=== PATIENT | female | born 1935 | race Caucasian/White ===

== ENCOUNTER 2018-12-28 16:49 | Emergency (ER) | payer MEDICARE, OTHER ==
--- NOTE | 2018-12-28 17:15 | ED ---
Head Injury - HPI Summary HPI Summary: 83-year-old female presents with head injury today. She states that her walker slipped out from under her and she fell and hit her head. She denies any chest pain or shortness of breath. She states this was a mechanical fall. She denies any hip or lower extremity injury. No bowel pain. She did not pass out. No loss consciousness. She believes she is not on blood thinners. Has an abrasion to her forehead that continues to bleed. Denies any neck pain. No other injury. - History Of Current Complaint Chief Complaint: EDHeadInjury Stated Complaint: HEAD LAC PER EMS Time Seen by Provider: 12/28/18 17:04 Pain Intensity: 0 - Allergies/Home Medications Allergies/Adverse Reactions: Allergies Allergy/AdvReac Type Severity Reaction Status Date / Time MS Acetaminophen Allergy Unknown Unknown Verified 05/11/13 11:41 [From Percocet] Reaction Details MS Oxycodone [From Percocet] Allergy Unknown Unknown Verified 05/11/13 11:41 Reaction Details MS Sulfa Antibiotics Allergy Unknown Unknown Verified 05/11/13 11:41 [Sulfa Antibiotics] Reaction Details Home Medications: Home Medications ALPRAZolam TAB* [Xanax TAB*] 0.25 - 0.5 mg PO BEDTIME PRN MDD 0.5 mg 12/28/18 [ History Confirmed 12/28/18] Allopurinol TAB* [Zyloprim 100 MG TAB*] 100 mg PO DAILY 12/28/18 [History Confirmed 12/28/18] Aspirin EC TAB* [Ecotrin EC Low Dose 81 MG*] 81 mg PO DAILY 12/28/18 [History Confirmed 12/28/18] Famotidine TAB* [Pepcid 20 MG TAB*] 20 mg PO DAILY 12/28/18 [History Confirmed 12/28/18] Hydrochlorothiazide TAB* [Hydrodiuril TAB*] 25 mg PO DAILY 12/28/18 [History Confirmed 12/28/18] Labetalol TAB* [Trandate TAB*] 300 mg PO BID 12/28/18 [History Confirmed ] Levothyroxine TAB* [Synthroid TAB*] 100 mcg PO DAILY 12/28/18 [History Confirmed 12/28/18] Nabumetone TAB* [Relafen TAB*] 500 mg PO BID WITH MEALS PRN 12/28/18 [History Confirmed 12/28/18] PARoxetine HCL TAB* [Paxil TAB*] 30 mg PO DAILY 12/28/18 [History Confirmed 07/13] Quinapril (NF) [Accupril (NF)] 40 mg PO DAILY 12/28/18 [History Confirmed ] Simvastatin TAB(NF) [Zocor(NF)] 20 mg PO BEDTIME 12/28/18 [History Confirmed 07/13] amLODIPine TAB* [Norvasc 5 mg TAB*] 10 mg PO DAILY 12/28/18 [History Confirmed 12/28/18] cloNIDine TAB* [Catapres 0.1 MG TAB*] 0.2 mg PO BID 12/28/18 [History Confirmed 12/28/18] metFORMIN* [Glucophage 500 MG TAB *] 500 mg PO BID WITH MEALS 12/28/18 [History Confirmed 12/28/18] PMH/Surg Hx/FS Hx/Imm Hx Endocrine/Hematology History: Reports: Hx Thyroid Disease Cardiovascular History: Reports: Hx Hypertension Denies: Hx Pacemaker/ICD Sensory History: Denies: Hx Hearing Aid Psychiatric History: Denies: Hx Panic Disorder - Cancer History Hx Chemotherapy: No Hx Radiation Therapy: No - Surgical History Surgery Procedure, Year, and Place: RT KNEE REPLACEMENT. RT FEMUR SURGERY. LT FEMUR SURGERY. LT HIP REPLACEMENT. GALLBLADDER 2012. PARTIAL HYSTERECTOMY. CATARACTS. LT FOOT SURGERY A CHILD Infectious Disease History: No Infectious Disease History: Denies: Traveled Outside the [place] in Last 30 Days - Family History Known Family History: Positive: Non-Contributory - Social History Alcohol Use: None Substance Use Type: Reports: None Hx Tobacco Use: No Smoking Status (MU): Never Smoked Tobacco Review of Systems Negative: Fever Negative: Chest Pain Negative: Shortness Of Breath Positive: Headache All Other Systems Reviewed And Are Negative: Yes Physical Exam Triage Information Reviewed: Yes Vital Signs On Initial Exam: Initial Vitals Temp Pulse Resp BP Pulse Ox 97.6 F 65 18 163/60 97 12/28/18 16:59 12/28/18 16:59 12/28/18 16:59 12/28/18 16:59 12/28/18 16:59 Vital Signs Reviewed: Yes Appearance: Positive: Well-Appearing Skin: Positive: Warm, Dry, Other - contusion with abrasion to right side of head Head/Face: Positive: Normal Head/Face Inspection Eyes: Positive: Normal, EOMI, ANGEL LUIS, Conjunctiva Clear ENT: Positive: Pharynx normal Respiratory/Lung Sounds: Positive: Clear to Auscultation, Breath Sounds Present Cardiovascular: Positive: Normal, RRR Abdomen Description: Positive: Nontender, Soft Bowel Sounds: Positive: Present Musculoskeletal: Positive: Normal Neurological: Positive: Sensory/Motor Intact, CN Intact II-III. Negative: Alert , Oriented to Person Place, Time - not orientated to time Psychiatric: Positive: Normal - [place] Coma Scale Best Eye Response: 4 - Spontaneous Best Motor Response: 6 - Obeys Commands Best Verbal Response: 5 - Oriented Coma Scale Total: 15 Diagnostics - Vital Signs Vital Signs Temp Pulse Resp BP Pulse Ox 12/28/18 16:59 97.6 F 65 18 163/60 97 - Laboratory Lab Statement: Any lab studies that have been ordered have been reviewed, and results considered in the medical decision making process. - CT brain CT Interpretation Completed By: Radiologist Summary of CT Findings: IMPRESSION: No acute intracranial abnormality. Right frontal scalp hematoma. Mild frontal sinus disease unchanged. neck CT Interpretation Completed By: Radiologist Summary of CT Findings: IMPRESSION: No acute C-spine fractures. Moderate degenerative changes. Head Injury Course/Dx Course Of Treatment: 83-year-old female presents with head injury today. She states that her walker slipped out from under her and she fell and hit her head. She denies any chest pain or shortness of breath. She states this was a mechanical fall. She denies any hip or lower extremity injury. No bowel pain. She did not pass out. No loss consciousness. She believes she is not on blood thinners. Has an abrasion to her forehead that continues to bleed. Denies any neck pain. No other injury. On exam has contusion with abrasion noted to the right side of forehead. Has been normal neuro exam but is not oriented to time. CT brain normal. CT neck normal. believes tetanus is up to date. gave head injury precautions. patient understnad and agrees with plan. - Diagnoses Differential Diagnosis/HQI/PQRI: Concussion Without LOC, Contusion, Intracranial Bleed Provider Diagnoses: Head injury, Fall, Traumatic hematoma of head Discharge ED - Sign-Out/Discharge Documenting (check all that apply): Patient Departure Patient Received Moderate/Deep Sedation with Procedure: No - Discharge Plan Condition: Good Disposition: HOME Patient Education Materials: Head Injury (ED) Referrals: Ayla Herbert WEATHER CLERK [Primary Care Provider] - Additional Instructions: Place ice on area as needed keep abrasion clean, wash with soap and water Take Tylenol for headache every 6 hours Modify activities as tolerated Follow up with primary within 5 days Return to ED if develop vomiting, severe headache, change in behavior, or any new or worsening symptoms - Billing Disposition and Condition Condition: GOOD Disposition: Home
[2018-12-28] MEDS ORDERED: Acetaminophen TAB* 325 MG PO ONE (18:25)
[2018-12-28 18:38] VITALS: BP 164/63
== END 2018-12-28 18:37 | disposition home or self-care (01) ==
LOC: ED 16:49
DX: S00.83XA Contusion of other part of head, initial encounter (principal); W18.39XA Other fall on same level, initial encounter; Y92.9 Unspecified place or not applicable; M50.320 Other cervical disc degeneration, mid-cervical region, unspecified level; J32.1 Chronic frontal sinusitis; E07.9 Disorder of thyroid, unspecified; I10 Essential (primary) hypertension; Z79.82 Long term (current) use of aspirin; Z79.899 Other long term (current) drug therapy; Z96.651 Presence of right artificial knee joint; Z96.642 Presence of left artificial hip joint; Z98.1 Arthrodesis status; Z88.6 Allergy status to analgesic agent; Z88.5 Allergy status to narcotic agent; Z88.2 Allergy status to sulfonamides
CPT/HCPCS: 70450; 72125; 99283; A9270-GY

== ENCOUNTER 2019-08-10 08:05 | Inpatient (IN) | payer MEDICARE, OTHER ==
--- OUTSIDE RECORDS SUMMARY | 2019-08-10 08:25 | XMS REPORT | Continuity of Care Document ---
:1935 External Reference #:[id number] Author Name Ayla Herbert, [employer] Address [address] [place] [address] Care Team Providers Name Role Phone Vinicius Foster MD - Rheumatology Care Team Information Color Buffer Bobby Gregory MD - Cardiovascular Care Team Information Color Buffer Disease Ruba Gardiner MD - Surgery Care Team Information Color Buffer Greg Calvillo MD - Orthopaedic Care Team Information Color Buffer Surgery Tad Estrada MD - Care Team Information Color Buffer [phone] Gastroenterology Problems Active Problems Provider Date Type 2 diabetes mellitus Shira Matt M.D. Onset: 08/02/2010 Essential hypertension Shira Matt M.D. Onset: 08/02/2010 Pure hypercholesterolemia Shira Matt M.D. Onset: 08/02/2010 Gout Shira Matt M.D. Onset: 08/02/2010 Carpal tunnel syndrome Shira Matt M.D. Onset: 08/02/2010 Social History Type Date Description Comments Sex Unknown Tobacco Use Start: Unknown Never Smoked Cigarettes her son smokes in the house, has been exposed to second hand smoke her entire life Tobacco Use Start: Unknown . ETOH Use Rarely consumes alcohol Tobacco Use Start: Unknown Patient has never smoked Recreational Drug Use Denies Drug Use Enjoy Exercising Enjoys exercising gait is unsteady, not allowed to go out alone, daughter takes her out Thursday afternoons, gets exercise that day...she has fecal accidents which limits her outings Allergies, Adverse Reactions, Alerts Active Allergies Reaction Severity Comments Date Sulfa 09/14/2015 Medications Active Medications SIG Qnty Indications Ordering Date Provider Melatonin ER one by mouth 30tabs F02.81 Shawnti R. 05/13/2019 3mg Tablets ER before bed SURAJ Herbert Paroxetine HCL 1 by mouth 30tabs Shawnti R. 05/06/2019 20mg Tablets every day SURAJ Herbert Famotidine Take One 30tabs Shawnti R. 10/06/2018 20mg Tablets Tablet By RANDEE Herbert-C Mouth Every Day [facility]2018 2.5mg Tablets daily SURAJ Herbert [facility] Wear daily and 120units N39.42 Lissy Elise 06/17/2018 Underwear/Large change as Brad Mancilla Misc needed Allopurinol take one 90tabs Abdulazizwnti R. 10/30/2017 100mg Tablets tablet by RANDEE Herbert-C mouth every day [facility] 09/14/2015 500mg Tablets SURAJ Herbert [facility]os[facility]ond[facility]in [facility] 09/14/2015 1500 Complex Maximum SURAJ Herbert Strength 1500Com Capsules Levothyroxine Sodium Take One 30tabs Abdulazizwnti R. 05/29/2014 100mcg Tablet By RANDEE Herbert-C Tablets Mouth Every Day For Thyroid Metformin HCL take one 180tabs E11.618 Nadiai R. 02/25/2013 500mg Tablets tablet by RANDEE Herbert-C mouth twice a day with food Nabumetone Take One 60tabs Shawnti R. 07/08/2010 500mg Tablets Tablet By RANDEE Herbert-C Mouth Twice A Day With Food as Needed For Joint Pain Alprazolam take 1 tablet 60tabs Abdulazizwnti R. 09/25/2009 0.5mg Tablets by mouth twice RANDEE Herbert-C daily if needed Labetalol HCL take one 180tabs I10 Shawnti R. 09/25/2009 300mg Tablets tablet by RANDEE Herbert-C mouth twice A day Clonidine HCL Take One 60tabs Shawnti R. 09/25/2009 0.2mg Tablets Tablet By RANDEE Herbert-Flor Mouth Twice A Day Simvastatin Take One 30tabs Meagan 09/25/2009 20mg Tablets Tablet By Josie Styles AT [place].Ian R.Ian Bedtime *Return For Fasting Statin Profile In 6 Months* Amlodipine Besylate Take 1 Tablet 30tabs Ayla Lima 09/25/2009 10mg Tablets By Mouth Once SURAJ Herbert Daily Hydrochlorothiazide take one 90tabs I10 Ayla Lima 04/30/2007 25mg Tablets tablet by RANDEE Herbert-Flor mouth every day Aspirin Take One 100units E11.9 Shira Locke 07/04/2005 81mg Ec Tab Daily. Brad Matt Quinapril HCL Take One 30tabs I10 Ayla Lima 05/18/2002 40mg Tablets Tablet By RANDEE Herbert-Flor Mouth Every Day History Medications Quetiapine Fumarate 1 tab by mouth 30tabs F02.81 Ayla Lima 05/06/2019 - before bed SURAJ Hrebert 05/13/2019 25mg Tablets Medications Administered in Office Medication SIG Qnty Indications Ordering Provider Date TB,Intradermal (PPD, [place]) SURAJ Bella 06/17/2019 Injection H1N1 Immunization Shira Matt, 04/11/2009 Administration, Including M.DKost[facility] Counseling Injection Immunizations CPT Code Status Date Vaccine Lot # [id number] Given 01/14/2019 Influenza Vaccine High Dose PF [id number] 44725 Given 02/19/2018 Influenza Vaccine High Dose PF [id number] 63486 Given 03/13/2017 [place] [id number] Given 05/11/2015 [place] [address] Given 05/12/2014 Tdap (Adacel) [id number] 43565 Given 05/12/2014 Prevnar-13 Pneumococcal Conjugate Vaccine [id number] 90780 Given 03/10/2014 Influenza Vaccine High Dose PF [id number] 49150 Given 02/11/2013 Zoster Vaccine [id number] 58091 Given 02/11/2013 Influenza Vaccine High Dose PF [id number] 80059 Given 03/12/2012 Influenza Vaccine-Preservative Free 3 Yrs And [id number] Above 86614 Given 06/27/2011 Zoster Vaccine [id number] 11950 Given 02/07/2011 Influenza Vaccine-Preservative Free 3 Yrs And [id number] Above 58944 Given 01/11/2010 Influenza Vaccine-Preservative Free 3 Yrs And [id number] Above 12913 Given 04/11/2009 H1N1 Influenza Vaccine [id number] 08380 Given 04/11/2009 Influenza Vaccine-Preservative Free 3 Yrs And Above 15586 Given 04/11/2009 Influenza Vaccine-Preservative Free 3 Yrs And [id number] Above 60399 Given 02/17/2008 Influenza Virus Vaccine, 3 Yrs And Above [id number] 27702 Given 02/12/2007 Influenza Virus Vaccine, 3 Yrs And Above [id number] 48376 Given 02/09/2006 Pneumovax 23 (PPSV23) 65+ years or high risk 2 1048P to 64 year old 69422 Given 02/09/2006 Influenza Virus Vaccine, 3 Yrs And Above [id number] 80516 Given 02/21/2005 Influenza Virus Vaccine, 3 Yrs And Above 49346 Given 02/21/2005 Influenza Virus Vaccine, 3 Yrs And Above [id number] 94487 Given 04/08/2004 Influenza Virus Vaccine, 3 Yrs And Above 89265 Given 02/17/2003 Influenza Virus Vaccine, 3 Yrs And Above 86627 Given 03/02/2001 Influenza Virus Vaccine, 3 Yrs And Above Vital Signs Date Vital Result Comment 06/17/2019 3:43pm Weight 172.00 lb Weight 78.019 kg BP Systolic 124 mmHg BP Diastolic 72 mmHg Heart Rate 76 /min Body Temperature 97.4 F Respiratory Rate 20 /min 05/06/2019 3:51pm Weight 169.00 lb Weight 76.658 kg BP Systolic 130 mmHg BP Diastolic 72 mmHg Heart Rate 68 /min Body Temperature 97.6 F Respiratory Rate 16 /min O2 % BldC Oximetry 97 % Results Test Acquired Date Facility Test Result H/L Range Note Urine DIP 05/06/2019 In House Lab Leukocytes Neg Neg (607)- - Urine Nitrites Neg Neg Urobilinogen Norm Norm Total Protein Urine Neg Neg Urine pH 6.0 5-6 Urine Blood Neg Neg Specific [place] 1.010 1.01-1.02 Urine Ketones Neg Neg Urine Bilirubin Neg Neg Urine Glucose Norm Norm Urine Culture And 05/06/2019 [facility] Urine SEE RESULT 1 Sensitivities [phone] Culture BELOW Comp Metabolic 03/04/2019 [facility] Sodium 140 mmol/ L Normal 135-1 Panel [phone] Potassium 4.1 mmol/L Normal 3.5-5.0 Chloride 104 mmol/L Normal 101-111 Co2 Carbon Dioxide 28 mmol/L Normal 22-32 Anion Gap 8 mmol/L Normal 2-11 Glucose 122 mg/dL High 70-100 Blood Urea Nitrogen 23 mg/dL Normal 6-24 Creatinine 1.11 mg/dL High 0.51-0.95 BUN/Creatinine Ratio 20.7 High 8-20 Calcium 10.8 mg/dL High 8.6-10.3 Total Protein 6.2 g/dL Low 6.4-8.9 Albumin 4.0 g/dL Normal 3.2-5.2 Globulin 2.2 g/dL Normal 2-4 Albumin/Globulin Ratio 1.8 Normal 1-3 Total Bilirubin 0.70 mg/dL Normal 0.2-1.0 Alkaline Phosphatase 50 U/L Normal 34-104 Alt 15 U/L Normal 7-52 Ast 16 U/L Normal 13-39 Egfr Non- 46.9 >60 Egfr 56.8 >60 2 CBC Auto 03/04/2019 [facility] White Blood 8.1 10^3/ uL Normal 3.5-10.8 Diff [phone] Count Red Blood Count 3.64 10^6/uL Low 3.70-4.87 Hemoglobin 12.0 g/dL Normal 12.0-16.0 Hematocrit 36 % Normal 35-47 Mean Corpuscular Volume 98 fL High 80-97 Mean Corpuscular Hemoglobin 33 pg High 27-31 Mean Corpuscular HGB Conc 34 g/dL Normal 31-36 Red Cell Distribution Width 13 % Normal 10-15 Platelet Count 248 10^3/uL Normal 150-450 Mean Platelet Volume 9.9 fL Normal 7.4-10.4 Abs Neutrophils 2.7 10^3/uL Normal 1.5-7.7 Abs Lymphocytes 4.3 10^3/uL Normal 1.0-4.8 Abs Monocytes 0.9 10^3/uL High 0-0.8 Abs Eosinophils 0.2 10^3/uL Normal 0-0.6 Abs Basophils 0.0 10^3/uL Normal 0-0.2 Abs Nucleated RBC 0.0 10^3/uL Granulocyte % 33.6 % Lymphocyte % 52.6 % Monocyte % 11.5 % Eosinophil % 2.0 % Basophil % 0.3 % Nucleated Red Blood Cells % 0.1 Laboratory test 03/04/2019 [facility] Hemoglobin A1c 6.5 % High 4.0-5.6 3 finding [phone] (Glyco HGB) Lipid Profile 03/04/2019 [facility] Triglycerides 193 4 (Trig/Chol/HDL) [phone] mg/dL Cholesterol 101 mg/dL 5 HDL Cholesterol 27.2 mg/dL 6 LDL Cholesterol 35 mg/dL 7 Laboratory test 03/04/2019 [facility] TSH (Thyroid 4.11 Normal 0.34-5.60 8 finding [phone] Stim Horm) mcIU/mL Urine 01/14/2019 [facility] Ur < 15.0 Microalbumin [phone] Microalbumin mg/L Random (mg/L) Urine Creatinine 57.73 mg/dL Urine Microalbumin/Creatinine TNP <31 9 Urine DIP 01/14/2019 In House Lab Leukocytes neg Neg (607)- - Urine Nitrites neg Neg Urobilinogen norm Norm Total Protein Urine neg Neg Urine pH 7 High 5-6 Urine Blood neg Neg Specific [place] 1.010 1.01-1.02 Urine Ketones neg Neg Urine Bilirubin neg Neg Urine Glucose norm Norm 1 SEE RESULT BELOW Name: SOFIA CHAVARRIA : [address]: Ayla Herbert NP Acct: [id number] Unit: [id number] AGE: 83 Location: [facility] Re05/06/19 SEX: F Status: REG REF SPEC: [id number] MARISABEL: 05/06/19-[address]: Ayla Herbert NP REQ: [id number] RECD: 05/06/19 STATUS: COMP _ SOURCE: URINE SPDESC: ORDERED: Urine Culture COMMENTS: [id number] Urine Source: Random Procedure Result Reported Site Urine Culture Final 05/07/19- 1440 ML No growth of clinically significant organisms * ML - Main Lab . END OF REPORT DEPARTMENT OF PATHOLOGY, [address] [place] [id number] Stan Lizarraga M.D. Director [facility] # [id number] 2 Because ethnic data is not always readily available, this report includes an eGFR for both -Americans and non- Americans. The National Kidney Disease Education Program (NKDEP) does not endorse the use of the MDRD equation for patients that are not between the ages of 18 and 70, are , have extremes of body size, muscle mass, or nutritional status, or are non- or non-. According to the National Kidney Foundation, irrespective of diagnosis, the stage of the disease is based on the level of kidney function: Stage Description GFR(mL/min/1.73 m(2)) 1 Kidney damage with normal or decreased GFR 90 2 Kidney damage with mild decrease in GFR 60-89 3 Moderate decrease in GFR 30-59 4 Severe decrease in GFR 15-29 5 Kidney failure <15 (or dialysis) 3 Therapeutic target for the treatment of diabetes mellitus patients is <7% HBA1C, and in selective patients <6.0%. Please refer to [place] [employer] Association diabetic care guidelines for further information. 4 Desirable: <150 Borderline High: 150-199 High: 200-499 Very High: >500 5 Desirable: <200 Borderline High: 200-239 High: >239 6 Low: <40 Desirable: 40-60 High: >60 7 Desirable: <100 Near Optimal: 100-129 Borderline High: 130-159 High: 160-189 Very High: >189 8 [id number] Unable to calculate due to low microalbumin Procedures Date Code Description Status 04/27/2013 [id number] Colonoscopy Completed 05/28/2012 [id number] Diabetic Retinal Eye Exam Completed Medical Devices Description No Information Available Encounters Type Date Location Provider Dx Diagnosis Office Visit 05/06/2019 Main Office Ayla Herbert, F02.81 Dementia in oth 3:45p [employer] diseases classd shirley w behavioral disturb R23.8 Other skin changes Office Visit 03/04/2019 4:15p Main Office Ayla Herbert, Z00.00 Encntr for general [employer] adult medical exam w/o abnormal findings E11.9 Type 2 diabetes mellitus without complications I10 Essential (primary) hypertension F02.81 Dementia in oth diseases classd elsricky w behavioral disturb Z12.31 Encntr screen mammogram for malignant neoplasm of breast Office Visit 01/14/2019 11:45a Main Office Abdulazizwmadhu Stone. F02.81 Dementia in oth Storm, [employer] diseases classd elswhr w behavioral disturb S20.221A Contusion of right back wall of thorax, initial encounter Z23 Encounter for immunization Assessments Date Code Description Provider 06/17/2019 F03.91 Unspecified dementia with behavioral Abdulazizwnti R. Storm, [employer] disturbance 06/17/2019 K62.3 Rectal prolapse Shawmdahu Herbert, [employer] 05/06/2019 F02.81 Dementia in other diseases classified Shawvasilei R. Keon, [employer] elsewhere with behavio 05/06/2019 R23.8 Other skin changes Ayla Herbert, [employer] 03/04/2019 Z00.00 Encounter for general adult medical Ayla Herbert, [employer] examination without abnormal findings 03/04/2019 E11.9 Type 2 diabetes mellitus without Abdulazizwvasilei Bertha. Keon, [employer] complications 03/04/2019 I10 Essential (primary) hypertension Ayla Herbert, [employer] 03/04/2019 F02.81 Dementia in other diseases classified Shawnti R. Keon, [employer] elsewhere with behavio 03/04/2019 Z12.31 Encounter for screening mammogram for Shawnti Janie Herbert, [employer] malignant neoplasm of breast 01/14/2019 F02.81 Dementia in other diseases classified Abdulazizwvasilei R. Keon, [employer] elsewhere with behavio 01/14/2019 S20.221A Contusion of right back wall of thorax, Ayla Herbert , [employer] initial encounter 01/14/2019 Z23 Encounter for immunization Ayla Herbert, [employer] Plan of Treatment Future Appointment(s):06/20/2019 8:40 am - Lab and Office Services at Main Fofsjg3007/15/2019 3:30 pm - Ayla Herbert [employer] at Main Pmchie1806/17/2019 - STEPHON BellaP-CF03.91 Unspecified dementia with behavioral disturbanceComments:dementia is progressing, encourage daytime activities and stimulation to promote better sleep at night. Discussed positive reorientation, if she is looking for children try telling her that their parents picked them up vs there are no children. Can use whole tab of xanax twice daily if needed, consider increased in paxil if this is not helpfulFollow up:1 monthRecommendations:You can take one whole xanax tab twice daily if needed for anxiety, Increase stimulation during he day, this will help with sleep at night.K62.3 Rectal prolapseComments:she is bothered by rectal prolapse, fecal leakage, she was planning on surgical repair a few years ago but got lost to follow up. [place] Functional Status Description No Information Available Mental Status Description No Information Available Referrals Description No Information Available
[2019-08-10 08:34] LABS: Hematocrit 38 % (35-47); Hemoglobin 12.6 g/dL (12.0-16.0); Mean Corpuscular HGB Conc 33 g/dL (31-36); Mean Corpuscular Hemoglobin 33 pg (27-31); Mean Corpuscular Volume 99 fL (80-97); Mean Platelet Volume 9.3 fL (7.4-10.4); Platelet Count 229 10^3/uL (150-450); Red Blood Count 3.83 10^6 /uL (3.70-4.87); Red Cell Distribution Width 14 % (10-15); White Blood Count 16.8 10^3/uL (3.5-10.8)
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
[2019-08-10 08:40] LABS: INR 1.04 (0.82-1.09)
[2019-08-10 08:47] LABS: BUN/Creatinine Ratio 20.8 (8-20); EGFR Non-African American 52.3 (>60); Potassium 4.6 mmol/L (3.5-5.0)
[2019-08-10 08:48] LABS: Albumin 4.2 g/dL (3.2-5.2); Albumin/Globulin Ratio 1.4 (1-3); Calcium 10.4 mg/dL (8.6-10.3); EGFR African American 63.3 (>60); Globulin 2.9 g/dL (2-4); Total Bilirubin 0.8 mg/dL (0.2-1.0); Total Protein 7.1 g/dL (6.4-8.9)
[2019-08-10 08:58] LABS: Urine Appearance Cloudy; Urine Bilirubin Negative (Negative); Urine Blood Negative (Negative); Urine Color Yellow; Urine Glucose 3+(>=500 mg/dL) (Negative); Urine Ketones Trace (Negative); Urine Nitrite Negative (Negative); Urine Protein Negative (Negative); Urine Specific Gravity 1.008 (1.010-1.030); Urine Urobilinogen Negative (Negative)
[2019-08-10 09:01] LABS: Urine Bacteria Absent (Absent); Urine Red Blood Cell 2+(6-10/hpf) (Absent); Urine Squamous Epithelial Cell Present (Absent); Urine White Blood Cell 3+(>20/hpf) (Absent)
[2019-08-10 09:23] LABS: TSH (Thyroid Stimulating Horm) 1.88 mcIU/mL (0.34-5.60)
[2019-08-10 09:25] LABS: Free T4 1.55 ng/dL (0.61-1.12)
[2019-08-10] MEDS ORDERED: NS 0.9% 1000 ML** 1,000 ML IV ONE ×2 (09:33→10:12)
[2019-08-10 09:43] LABS: Magnesium 1.8 mg/dL (1.9-2.7)
[2019-08-10] MEDS: Magnesium Sulfate 2 GM IV* 2 GM/50 ML BAG IVPB ONE ×2 (10:18→10:33)
[2019-08-10] MEDS ORDERED: Norepinephrine 16MCG/ML IVPRE* 4,000 MCG/250 ML BAG IV ONE (10:29)
[2019-08-10 10:31] LABS: ABS Basophils 0.1 10^3/ul (0-0.2); ABS Eosinophils 0.3 10^3/ul (0-0.6); ABS Lymphocytes 7.8 10^3/ul (1.0-4.8); ABS Monocytes 0.7 10^3/ul (0-0.8); Eosinophil % 1.7 %; Lymphocyte % 46.3 %
[2019-08-10] MEDS ORDERED: Norepinephrine 16MCG/ML IVPRE* 4,000 MCG/250 ML BAG IV SCH (11:00)
[2019-08-10] MEDS: cefTRIAXone(*) 1 GM in NS 0.9% 50 ML* 50 ML IVPB SCH (14:10)
[2019-08-10] MEDS ORDERED: ALPRAZolam TAB* 0.5 MG PO PRN (16:00)
[2019-08-10] MEDS ORDERED: Dextrose 50% Syringe 50 ML* 25 GM/50 ML SYRINGE IV PUSH PRN (16:07)
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
[2019-08-10] MEDS: Insulin LISPRO* 1 UNITS UNIT SUBCUT SCH (16:39)
[2019-08-10] MEDS ORDERED: ALPRAZolam TAB* 0.5 MG PO ONE (16:51)
[2019-08-10] MEDS: Atorvastatin* 10 MG TAB PO SCH (19:45)
[2019-08-10] MEDS: cloNIDine TAB* 0.1 MG PO SCH (19:45)
[2019-08-10] MEDS: Labetalol TAB* 300 MG PO SCH (19:45)
[2019-08-10 21:16] LABS: Urine Appearance Cloudy; Urine Bilirubin Negative (Negative); Urine Blood Negative (Negative); Urine Color Yellow; Urine Glucose Negative (Negative); Urine Ketones Trace (Negative); Urine Nitrite Negative (Negative); Urine Protein Negative (Negative); Urine Specific Gravity 1.009 (1.010-1.030); Urine Urobilinogen Negative (Negative)
[2019-08-10] MEDS ORDERED: Haloperidol INJ IV/IM* 5 MG/ML AMP IV SLOW PU ONE (22:43)
[2019-08-10] MEDS: Heparin VIAL(*) 5000 UNITS/ML VIAL (FIVE THOUSAND) SUBCUT SCH (23:15)
[2019-08-11] MEDS: Heparin VIAL(*) 5000 UNITS/ML VIAL (FIVE THOUSAND) SUBCUT SCH ×3 (05:19→21:35)
[2019-08-11] MEDS: Levothyroxine TAB* 100 MCG TAB PO SCH (05:19)
[2019-08-11 05:55] LABS: Hematocrit 31 % (35-47); Hemoglobin 10.9 g/dL (12.0-16.0); Mean Corpuscular HGB Conc 35 g/dL (31-36); Mean Corpuscular Hemoglobin 34 pg (27-31); Mean Corpuscular Volume 96 fL (80-97); Mean Platelet Volume 9.6 fL (7.4-10.4); Platelet Count 227 10^3/uL (150-450); Red Blood Count 3.23 10^6 /uL (3.70-4.87); Red Cell Distribution Width 13 % (10-15); White Blood Count 10.9 10^3/uL (3.5-10.8)
[2019-08-11 06:13] LABS: BUN/Creatinine Ratio 16.7 (8-20); Calcium 9.6 mg/dL (8.6-10.3); EGFR African American 78.3 (>60); EGFR Non-African American 64.8 (>60); Magnesium 1.7 mg/dL (1.9-2.7); Potassium 3.1 mmol/L (3.5-5.0)
[2019-08-11] MEDS ORDERED: Magnesium Sulfate 2 GM IV* 2 GM/50 ML BAG IVPB ONE (08:10)
[2019-08-11] MEDS ORDERED: KCL 20 MEQ/100 ML IVPREMIX* 20 MEQ/100 ML BAG IV ONE (08:10)
[2019-08-11] MEDS: Insulin LISPRO* 1 UNITS UNIT SUBCUT SCH ×3 (09:35→16:58)
[2019-08-11] MEDS: Aspirin EC TAB* 81 MG TAB.EC PO SCH (09:37)
[2019-08-11] MEDS: PARoxetine HCL TAB* 20 MG PO SCH (09:37)
[2019-08-11] MEDS: cloNIDine TAB* 0.1 MG PO SCH ×2 (09:37→21:34)
[2019-08-11] MEDS: amLODIPine TAB* 5 MG PO SCH (09:38)
[2019-08-11] MEDS: Lisinopril TAB* 10 MG PO SCH (09:39)
[2019-08-11] MEDS: Famotidine TAB* 20 MG PO SCH (09:39)
[2019-08-11] MEDS: Labetalol TAB* 300 MG PO SCH ×2 (09:40→21:33)
[2019-08-11] MEDS: Hydrochlorothiazide TAB* 25 MG PO SCH (09:40)
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
[2019-08-11] MEDS: cefTRIAXone(*) 1 GM in NS 0.9% 50 ML* 50 ML IVPB SCH (13:16)
[2019-08-11] MEDS: Atorvastatin* 10 MG TAB PO SCH (21:34)
[2019-08-12] MEDS: Levothyroxine TAB* 100 MCG TAB PO SCH (05:28)
[2019-08-12] MEDS: Heparin VIAL(*) 5000 UNITS/ML VIAL (FIVE THOUSAND) SUBCUT SCH ×3 (05:29→21:17)
[2019-08-12 06:09] LABS: BUN/Creatinine Ratio 10.3 (8-20); Calcium 10.5 mg/dL (8.6-10.3); EGFR African American 75.2 (>60); EGFR Non-African American 62.2 (>60); Potassium 3.4 mmol/L (3.5-5.0)
[2019-08-12] MEDS: Insulin LISPRO* 1 UNITS UNIT SUBCUT SCH ×3 (07:37→17:20)
[2019-08-12] MEDS: Famotidine TAB* 20 MG PO SCH (07:57)
[2019-08-12] MEDS: Aspirin EC TAB* 81 MG TAB.EC PO SCH (07:57)
[2019-08-12] MEDS: Labetalol TAB* 300 MG PO SCH ×2 (07:57→21:17)
[2019-08-12] MEDS: cloNIDine TAB* 0.1 MG PO SCH ×2 (07:57→21:17)
[2019-08-12] MEDS: amLODIPine TAB* 5 MG PO SCH (07:57)
[2019-08-12] MEDS: Lisinopril TAB* 10 MG PO SCH (07:57)
[2019-08-12] MEDS: Hydrochlorothiazide TAB* 25 MG PO SCH (07:57)
[2019-08-12] MEDS: PARoxetine HCL TAB* 20 MG PO SCH (07:58)
[2019-08-12] MEDS ORDERED: Potassium Chlor TAB* 20 MEQ TAB.ER PO ONE (09:46)
[2019-08-12] MEDS: cefTRIAXone(*) 1 GM in NS 0.9% 50 ML* 50 ML IVPB SCH (12:46)
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
[2019-08-12] MEDS: Atorvastatin* 10 MG TAB PO SCH (21:17)
[2019-08-13] MEDS ORDERED: hydrALAZINE IV* 20 MG/ML VIAL IV SLOW PU PRN (03:22)
[2019-08-13] MEDS: Levothyroxine TAB* 100 MCG TAB PO SCH (06:06)
[2019-08-13] MEDS: Heparin VIAL(*) 5000 UNITS/ML VIAL (FIVE THOUSAND) SUBCUT SCH ×2 (06:06→13:59)
[2019-08-13 07:06] LABS: ABS Eosinophils 0.1 10^3/ul (0-0.6); ABS Neutrophils 2.9 10^3/ul (1.5-7.7); Eosinophil % 1.7 %; Hematocrit 32 % (35-47); Hemoglobin 11.2 g/dL (12.0-16.0); Lymphocyte % 48.8 %; Mean Corpuscular HGB Conc 35 g/dL (31-36); Mean Corpuscular Hemoglobin 34 pg (27-31); Mean Corpuscular Volume 97 fL (80-97); Mean Platelet Volume 9.7 fL (7.4-10.4); Nucleated Red Blood Cells % 0.1; Platelet Count 193 10^3/uL (150-450); Red Cell Distribution Width 13 % (10-15); White Blood Count 8.1 10^3/uL (3.5-10.8)
[2019-08-13 07:21] LABS: Calcium 10.4 mg/dL (8.6-10.3); Potassium 3.3 mmol/L (3.5-5.0)
[2019-08-13 07:27] LABS: EGFR African American 79.4 (>60); EGFR Non-African American 65.7 (>60)
[2019-08-13] MEDS ORDERED: metFORMIN* 500 MG TAB PO SCH (08:00)
[2019-08-13] MEDS ORDERED: Amoxicillin/Clavulanate TAB* 500 MG PO SCH (09:00)
[2019-08-13] MEDS: Insulin LISPRO* 1 UNITS UNIT SUBCUT SCH ×2 (09:12→12:31)
[2019-08-13] MEDS: PARoxetine HCL TAB* 20 MG PO SCH (09:18)
[2019-08-13] MEDS: Aspirin EC TAB* 81 MG TAB.EC PO SCH (09:19)
[2019-08-13] MEDS: amLODIPine TAB* 5 MG PO SCH (09:19)
[2019-08-13] MEDS: cloNIDine TAB* 0.1 MG PO SCH (09:19)
[2019-08-13] MEDS: Lisinopril TAB* 10 MG PO SCH (09:19)
[2019-08-13] MEDS: Hydrochlorothiazide TAB* 25 MG PO SCH (09:19)
[2019-08-13] MEDS: Famotidine TAB* 20 MG PO SCH (09:19)
[2019-08-13] MEDS: Labetalol TAB* 300 MG PO SCH (09:20)
[2019-08-13] MEDS ORDERED: Potassium Chlor TAB* 20 MEQ TAB.ER PO ONE (14:31)
[2019-08-13 19:15] VITALS: BP 159/58
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
== END 2019-08-13 23:26 | disposition home or self-care (01) | DRG 923 ==
LOC: ED 08:05 → ICU 10:52 → MEDTELE 16:25
PROVIDERS: ADMIT Surgery Surgical Critical Care; ATTEND Internal Medicine
DX: T68.XXXA Hypothermia, initial encounter (principal); N39.0 Urinary tract infection, site not specified; X31.XXXA Exposure to excessive natural cold, initial encounter; I48.91 Unspecified atrial fibrillation; F03.90 Unspecified dementia, unspecified severity, without behavioral disturbance, psychotic disturbance, mood disturbance, and anxiety; B96.20 Unspecified Escherichia coli [E. coli] as the cause of diseases classified elsewhere; E11.9 Type 2 diabetes mellitus without complications; I95.9 Hypotension, unspecified; I10 Essential (primary) hypertension; E78.5 Hyperlipidemia, unspecified; E03.9 Hypothyroidism, unspecified; Z66 Do not resuscitate; M85.862 Other specified disorders of bone density and structure, left lower leg; M85.861 Other specified disorders of bone density and structure, right lower leg; M16.0 Bilateral primary osteoarthritis of hip; F41.9 Anxiety disorder, unspecified; K21.9 Gastro-esophageal reflux disease without esophagitis; Z96.642 Presence of left artificial hip joint; Z79.84 Long term (current) use of oral hypoglycemic drugs; Z79.82 Long term (current) use of aspirin; Z79.899 Other long term (current) drug therapy; Z88.6 Allergy status to analgesic agent; Z88.5 Allergy status to narcotic agent; Z88.2 Allergy status to sulfonamides
CPT/HCPCS: 36415; 70450; 71045; 72170; 80048; 80053; 81003; 81015; 82550; 83605; 83735; 83880; 84439; 84443; 84484; 85025; 85027; 85060; 85610; 87077; 87086; 87186; 93005; 96374; 99284; A9270-GY; J0360; J0696; J1630; J1644; J3475; J3480

== ENCOUNTER 2020-11-30 15:31 | Observation (INO) ==
[2020-11-30] MEDS ORDERED: Lactated Ringers 1000 ml BAG 1,000 ML IV ONE (15:38)
[2020-11-30 16:29] LABS: ABS Basophils 0.1 10^3/ul (0-0.2); ABS Eosinophils 0.1 10^3/ul (0-0.6); ABS Lymphocytes 3.3 10^3/ul (1.0-4.8); ABS Monocytes 1.3 10^3/ul (0-0.8); ABS Neutrophils 9.2 10^3/ul (1.5-7.7); Eosinophil % 0.6 %; Hematocrit 37 % (35-47); Hemoglobin 12.3 g/dL (12.0-16.0); Lymphocyte % 23.6 %; Mean Corpuscular HGB Conc 33 g/dL (31-36); Mean Corpuscular Hemoglobin 34 pg (27-31); Mean Corpuscular Volume 102 fL (80-97); Mean Platelet Volume 9.1 fL (7.4-10.4); Platelet Count 237 10^3/uL (150-450); Red Blood Count 3.66 10^6 /uL (3.70-4.87); Red Cell Distribution Width 14 % (10-15); White Blood Count 13.9 10^3/uL (3.5-10.8)
[2020-11-30 16:52] LABS: Albumin 3.5 g/dL (3.2-5.2); Albumin/Globulin Ratio 1.7 (1-3); Calcium 9.9 mg/dL (8.6-10.3); EGFR African American 39.9 (>60); Globulin 2.1 g/dL (2-4); Potassium 3.8 mmol/L (3.5-5.0); Total Bilirubin 0.9 mg/dL (0.2-1.0); Total Protein 5.6 g/dL (6.4-8.9)
[2020-11-30 17:08] LABS: Magnesium 2.2 mg/dL (1.9-2.7)
[2020-11-30] MEDS ORDERED: NS 0.9% 1000 ml BAG 1,000 ML IV SCH (19:15)
[2020-11-30] MEDS ORDERED: Dextrose 50% Syringe 50 ml 25 GM/50 ML SYRINGE IV PUSH PRN (19:18)
[2020-11-30] MEDS: Heparin 5000 UNITS/ML 1 mL VIAL SUBCUT SCH (21:51)
[2020-11-30 22:10] LABS: Urine Appearance Cloudy; Urine Bilirubin Negative (Negative); Urine Blood Negative (Negative); Urine Color Amber; Urine Glucose Negative (Negative); Urine Ketones Negative (Negative); Urine Nitrite Negative (Negative); Urine Protein 1+(30 mg/dL) (Negative); Urine Specific Gravity 1.013 (1.002-1.030); Urine Urobilinogen Negative (Negative)
[2020-11-30 22:15] LABS: Urine Bacteria 1+ (Absent); Urine Red Blood Cell Trace(0-2/hpf) (Absent); Urine Squamous Epithelial Cell Present (Absent); Urine White Blood Cell 3+(>20/hpf) (Absent)
[2020-11-30] MEDS: Ondansetron 4 mg VIAL 2 MG/ML 2 ml VIAL IV PRN (23:19)
[2020-12-01] MEDS: Heparin 5000 UNITS/ML 1 mL VIAL SUBCUT SCH ×3 (04:21→21:37)
[2020-12-01 07:12] LABS: ABS Lymphocytes 3.4 10^3/ul (1.0-4.8); ABS Monocytes 1.3 10^3/ul (0-0.8); ABS Neutrophils 7.3 10^3/ul (1.5-7.7); Hematocrit 31 % (35-47); Hemoglobin 10.7 g/dL (12.0-16.0); Lymphocyte % 27.9 %; Mean Corpuscular HGB Conc 35 g/dL (31-36); Mean Corpuscular Hemoglobin 35 pg (27-31); Mean Corpuscular Volume 100 fL (80-97); Mean Platelet Volume 9.5 fL (7.4-10.4); Platelet Count 215 10^3/uL (150-450); Red Blood Count 3.08 10^6 /uL (3.70-4.87); Red Cell Distribution Width 14 % (10-15)
[2020-12-01 07:35] LABS: Calcium 9.7 mg/dL (8.6-10.3); EGFR African American 39.6 (>60); EGFR Non-African American 32.8 (>60); Potassium 3.8 mmol/L (3.5-5.0)
[2020-12-01] MEDS: Aspirin EC 81 mg TAB.EC (enteric coated) PO SCH (10:22)
[2020-12-01] MEDS ORDERED: NS 0.9% 1000 ml BAG 1,000 ML IV ONE (10:56)
[2020-12-01 17:24] LABS: Urine Creatinine Concentration 153.77 mg/dL; Urine Potassium Concentration 51.6 mmol/L
[2020-12-01] MEDS: Ondansetron 4 mg VIAL 2 MG/ML 2 ml VIAL IV PRN (23:47)
[2020-12-02 08:25] LABS: Hematocrit 29 % (35-47); Hemoglobin 10.2 g/dL (12.0-16.0); Mean Corpuscular HGB Conc 35 g/dL (31-36); Mean Corpuscular Hemoglobin 35 pg (27-31); Mean Corpuscular Volume 100 fL (80-97); Mean Platelet Volume 9.3 fL (7.4-10.4); Platelet Count 176 10^3/uL (150-450); Red Blood Count 2.93 10^6 /uL (3.70-4.87); Red Cell Distribution Width 14 % (10-15); White Blood Count 9.9 10^3/uL (3.5-10.8)
[2020-12-02 08:31] LABS: Calcium 9.4 mg/dL (8.6-10.3); EGFR African American 60.9 (>60); EGFR Non-African American 50.4 (>60); Magnesium 1.7 mg/dL (1.9-2.7); Potassium 3.3 mmol/L (3.5-5.0)
[2020-12-02] MEDS: Aspirin EC 81 mg TAB.EC (enteric coated) PO SCH (08:51)
[2020-12-02] MEDS: Heparin 5000 UNITS/ML 1 mL VIAL SUBCUT SCH ×2 (08:52→13:37)
[2020-12-02] MEDS: KCL 10 MEQ/50 ML IVPREMIX 10 MEQ/50 ML BAG IV SCH ×2 (12:02→13:37)
[2020-12-02 12:17] VITALS: BP 134/57
[2020-12-02] MEDS ORDERED: Potassium Chlor 20 meq TAB.ER PO ONE (12:25)
== END 2020-12-02 14:30 | disposition home or self-care (01) ==
LOC: ED 15:31 → MED 15:31
PROVIDERS: ADMIT Hospitalist; ATTEND Student in an Organized Health Care Education/Training Program

== ENCOUNTER 2021-07-14 14:15 | Observation (INO) ==
[2021-07-14 15:59] LABS: ABS Eosinophils 0.1 10^3/ul (0-0.6); ABS Lymphocytes 3.1 10^3/ul (1.0-4.8); ABS Monocytes 0.6 10^3/ul (0-0.8); ABS Neutrophils 3.9 10^3/ul (1.5-7.7); Eosinophil % 1.7 %; Hematocrit 33 % (35-47); Hemoglobin 11.1 g/dL (12.0-16.0); Lymphocyte % 39.9 %; Mean Corpuscular HGB Conc 34 g/dL (31-36); Mean Corpuscular Hemoglobin 33 pg (27-31); Mean Corpuscular Volume 99 fL (80-97); Mean Platelet Volume 9.9 fL (7.4-10.4); Platelet Count 251 10^3/uL (150-450); Red Blood Count 3.32 10^6 /uL (3.70-4.87); Red Cell Distribution Width 15 % (10-15); White Blood Count 7.8 10^3/uL (3.5-10.8)
[2021-07-14 16:27] LABS: High Sens Troponin Baseline 21 pg/mL (<15)
[2021-07-14 16:40] LABS: ALT 11 U/L (7-52); AST 16 U/L (13-39); Albumin 3.9 g/dL (3.2-5.2); Albumin/Globulin Ratio 1.9 (1-3); Alkaline Phosphatase 56 U/L (35-149); Anion Gap 8 mmol/L (2-11); Blood Urea Nitrogen 27 mg/dL (6-24); C Reactive Protein < 1.00 mg/L (<8.01); CO2 Carbon Dioxide 27 mmol/L (22-32); Calcium 11.1 mg/dL (8.6-10.3); Chloride 99 mmol/L (101-111); Globulin 2.1 g/dL (2-4); Glucose 77 mg/dL (70-100); Potassium 3.5 mmol/L (3.5-5.0); Sodium 134 mmol/L (135-145); eGFR CKD-EPI 58.7 (>60)
[2021-07-14 16:56] LABS: High Sensitivity Troponin 1 Hr 20 pg/mL (<15)
[2021-07-14 16:58] LABS: Activated Partial Thrombo Time 34.1 seconds (26.0-38.0); INR 1.01 (0.86-1.15)
[2021-07-14 17:01] LABS: Urine Appearance Clear; Urine Bilirubin Negative (Negative); Urine Blood Negative (Negative); Urine Color Yellow; Urine Glucose Negative (Negative); Urine Ketones Negative (Negative); Urine Nitrite Positive (Negative); Urine Protein Negative (Negative); Urine Urobilinogen Negative (Negative)
[2021-07-14 17:14] LABS: Urine Bacteria 3+ (Absent); Urine Red Blood Cell Absent (Absent); Urine Squamous Epithelial Cell Present (Absent); Urine White Blood Cell Trace(0-5/hpf) (Absent)
[2021-07-14] MEDS ORDERED: cefTRIAXone 1 gm/50 mL NS BAG 1 GM/50 ML BAG IV ONE (17:23)
[2021-07-14] MEDS ORDERED: Potassium Chloride LIQUID 20 MEQ/15 ML LIQUID PO ONE (18:44)
[2021-07-14] MEDS: Enoxaparin 40 MG/0.4 ML SYR SUBCUT SCH (20:04)
[2021-07-14] MEDS: Labetalol 300 mg TAB PO SCH (21:06)
[2021-07-14 21:21] LABS: Magnesium 1.8 mg/dL (1.9-2.7); TSH Ultra Thyroid Stim Horm 0.69 mcIU/mL (0.34-5.60)
[2021-07-15 05:49] LABS: ABS Eosinophils 0.2 10^3/ul (0-0.6); ABS Lymphocytes 3.3 10^3/ul (1.0-4.8); ABS Monocytes 0.7 10^3/ul (0-0.8); ABS Neutrophils 2.9 10^3/ul (1.5-7.7); Eosinophil % 2.4 %; Hematocrit 29 % (35-47); Hemoglobin 9.7 g/dL (12.0-16.0); Lymphocyte % 46.4 %; Mean Corpuscular HGB Conc 33 g/dL (31-36); Mean Corpuscular Hemoglobin 33 pg (27-31); Mean Corpuscular Volume 101 fL (80-97); Mean Platelet Volume 9.8 fL (7.4-10.4); Platelet Count 229 10^3/uL (150-450); Red Blood Count 2.91 10^6 /uL (3.70-4.87); Red Cell Distribution Width 15 % (10-15); White Blood Count 7.1 10^3/uL (3.5-10.8)
[2021-07-15 06:04] LABS: Calcium 10.3 mg/dL (8.6-10.3); Potassium 3.9 mmol/L (3.5-5.0); eGFR CKD-EPI 50.3 (>60)
[2021-07-15] MEDS: Aspirin EC 81 mg TAB.EC (enteric coated) PO SCH (08:48)
[2021-07-15] MEDS: Labetalol 300 mg TAB PO SCH ×2 (09:26→19:58)
[2021-07-15] MEDS ORDERED: Lactated Ringers 500 ml BAG 500 ML IV SCH (17:00)
[2021-07-15 17:33] LABS: Folate 8.16 ng/mL (5.90-24.80)
[2021-07-15] MEDS ORDERED: cefTRIAXone 1 gm/50 mL NS BAG 1 GM/50 ML BAG IVPB SCH (18:00)
[2021-07-15] MEDS: Enoxaparin 40 MG/0.4 ML SYR SUBCUT SCH (19:54)
[2021-07-16 06:11] LABS: Hematocrit 29 % (35-47); Hemoglobin 9.8 g/dL (12.0-16.0); Mean Corpuscular HGB Conc 34 g/dL (31-36); Mean Corpuscular Hemoglobin 34 pg (27-31); Mean Corpuscular Volume 100 fL (80-97); Mean Platelet Volume 9.1 fL (7.4-10.4); Platelet Count 204 10^3/uL (150-450); Red Blood Count 2.92 10^6 /uL (3.70-4.87); Red Cell Distribution Width 15 % (10-15); White Blood Count 7.4 10^3/uL (3.5-10.8)
[2021-07-16 07:10] LABS: ABS Eosinophils 0.3 10^3/ul (0-0.6); ABS Lymphocytes 4.5 10^3/ul (1.0-4.8); ABS Monocytes 0.8 10^3/ul (0-0.8); ABS Neutrophils 1.7 10^3/ul (1.5-7.7); Eosinophil % 3.7 %; Lymphocyte % 61.8 %; Nucleated Red Blood Cells % 0.2
[2021-07-16] MEDS: Labetalol 300 mg TAB PO SCH (08:47)
[2021-07-16] MEDS: Aspirin EC 81 mg TAB.EC (enteric coated) PO SCH (08:48)
[2021-07-16 11:04] VITALS: BP 113/51
[2021-07-16] MEDS ORDERED: cefTRIAXone 1 gm/50 mL NS BAG 1 GM/50 ML BAG IVPB SCH (13:00)
== END 2021-07-16 15:45 | disposition home or self-care (01) ==
LOC: ED 14:15 → EDHOLD 14:15 → MED 21:02
PROVIDERS: ADMIT Student in an Organized Health Care Education/Training Program; ATTEND Internal Medicine

== ENCOUNTER 2023-08-17 18:05 | Inpatient (IN) ==
[2023-08-17 18:43] LABS: ABS Lymphocytes 1.7 10^3/uL (1.0-4.8); ABS Monocytes 0.3 10^3/uL (0.0-0.9); ABS Neutrophils 4.7 10^3/uL (1.5-7.6); ABS Nucleated RBC 0.01 10^3/ul; Hematocrit 31.9 % (35-45); Hemoglobin 10.9 g/dL (11.5-14.3); Mean Corpuscular Hemoglobin 33.5 pg (27-33); Mean Corpuscular Hgb Conc 34.1 g/dL (31-36); Mean Corpuscular Volume 98.4 fL (80-97); Mean Platelet Volume 10.1 fL (7.5-11.2); Nucleated Red Blood Cells % 0.1 %/100WBC (0.0-0.8); Platelet Count 209 10^3/uL (150-450); Red Blood Count 3.24 10^6/uL (3.63-4.92); Red Cell Distribution Width 14.3 % (12-17); White Blood Count 6.7 10^3/uL (3.8-11.8)
[2023-08-17 19:08] LABS: High Sens Troponin Baseline 327 pg/mL (<15)
[2023-08-17] MEDS: NS 0.9% 500 ml BAG 500 ML IV ONE ×2 (19:23→20:16)
[2023-08-17 19:27] LABS: ALT 15 U/L (7-52); Albumin 3.6 g/dL (3.2-5.2); Albumin/Globulin Ratio 1.3 (1-3); Alkaline Phosphatase 65 U/L (35-149); Anion Gap 8 mmol/L (2-16); Blood Urea Nitrogen 37 mg/dL (6-24); C Reactive Protein 7.75 mg/L (<8.01); CO2 Carbon Dioxide 28 mmol/L (22-32); Calcium 11.2 mg/dL (8.6-10.3); Chloride 103 mmol/L (101-111); Creatinine, Serum 1.29 mg/dL (0.51-0.95); Globulin 2.8 g/dL (2-4); Glucose 159 mg/dL (70-100); Lipase < 10 U/L (11.0-82.0); Magnesium 1.6 mg/dL (1.9-2.7); Sodium 139 mmol/L (135-145); Total Bilirubin 0.7 mg/dL (0.2-1.0); Total Protein 6.4 g/dL (6.4-8.9); eGFR CKD-EPI 40.2 (>60)
[2023-08-17] MEDS: Piperacillin/Tazobac 3.375 BAG 3.375 GM/100 ML BAG IV ONE (19:34)
[2023-08-17 20:03] LABS: PCO2 Arterial 39 mmHg (35-45); PO2 Arterial 170 mmHg (80-100)
[2023-08-17 20:11] LABS: High Sensitivity Troponin 1 Hr 707 pg/mL (<15)
[2023-08-17 20:28] LABS: Urine Appearance Turbid; Urine Bilirubin Negative (Negative); Urine Blood Trace (Negative); Urine Color Yellow; Urine Glucose Negative (Negative); Urine Ketones Negative (Negative); Urine Nitrite Negative (Negative); Urine Protein Trace (Negative); Urine Specific Gravity 1.016 (1.002-1.030); Urine Urobilinogen Negative (Negative)
[2023-08-17 20:32] LABS: Urine Bacteria 3+ /HPF (Absent); Urine Red Blood Cell Trace(0-2/hpf) /HPF (0-Trace); Urine Squamous Epithelial Cell Present /HPF (Absent); Urine White Blood Cell 3+(>20/hpf) /HPF (0-Trace)
[2023-08-17 20:39] LABS: Activated Partial Thrombo Time 33.9 seconds (26.0-38.0); INR 1.02 (0.83-1.13)
[2023-08-17 21:02] LABS: Phosphorus 2.7 mg/dL (2.5-5.0); Potassium Redraw 3.8 mmol/L (3.5-5.0)
[2023-08-17] MEDS: Magnesium Sulf 4 GM/100 ML IV 4,000 MG/100 ML BAG IVPB ONE (21:03)
[2023-08-17] MEDS: Lactated Ringers 1000 ml BAG 1,000 ML IV ONE (21:03)
[2023-08-17] MEDS ORDERED: Heparin DRIP 25,000 UNITS BAG 25,000 UNITS/250 ML BAG IV SCH (22:30)
[2023-08-17 22:42] LABS: High Sensitivity Troponin 3 Hr 2020 pg/mL (<15)
[2023-08-17] MEDS: Heparin 5000 UNITS/ML 1 mL VIAL IV SCH (23:18)
[2023-08-17] MEDS: Heparin DRIP 25,000 UNITS BAG 25,000 UNITS/250 ML BAG IV SCH (23:19)
[2023-08-17] MEDS ORDERED: Senna TAB 8.6 mg TAB PO PRN (23:59)
[2023-08-17] MEDS ORDERED: Polyethylene Glycol 3350 17 GM PACKET PO PRN (23:59)
[2023-08-18] MEDS: cefTRIAXone 1 GM ONETIME (ADVAN) IVPB ONE (01:18)
[2023-08-18] MEDS ORDERED: Dextrose 50% Syringe 50 ml 25 GM/50 ML SYRINGE IV PUSH PRN (01:28)
[2023-08-18 02:41] LABS: High Sensitivity Troponin 1 Hr 4601 pg/mL (<15)
[2023-08-18] MEDS: Lactated Ringers 1000 ml BAG 1,000 ML IV ONE (03:12)
[2023-08-18 05:34] LABS: Hematocrit 27.9 % (35-45); Hemoglobin 9.5 g/dL (11.5-14.3); Mean Corpuscular Hemoglobin 33.2 pg (27-33); Mean Corpuscular Hgb Conc 34.2 g/dL (31-36); Mean Corpuscular Volume 97.2 fL (80-97); Platelet Count 198 10^3/uL (150-450); Red Blood Count 2.87 10^6/uL (3.63-4.92); Red Cell Distribution Width 14.5 % (12-17); White Blood Count 8.1 10^3/uL (3.8-11.8)
[2023-08-18 06:19] LABS: Calcium 10.5 mg/dL (8.6-10.3); Creatinine, Serum 1.14 mg/dL (0.51-0.95); Magnesium 2.6 mg/dL (1.9-2.7); Potassium 3.3 mmol/L (3.5-5.0); eGFR CKD-EPI 46.6 (>60)
[2023-08-18 06:26] LABS: Ferritin 53.3 ng/mL (11-307)
[2023-08-18] MEDS: Glucose ORAL 15 GM TUBE PO ONE (06:40)
[2023-08-18] MEDS: Potassium Chlor 20 meq TAB.ER PO ONE (11:58)
[2023-08-18] MEDS: Aspirin EC 81 mg TAB.EC (enteric coated) PO SCH (11:59)
[2023-08-18 12:58] LABS: High Sensitivity Troponin 1 Hr 5092 pg/mL (<15)
[2023-08-18 17:42] LABS: High Sensitivity Troponin 1 Hr 3816 pg/mL (<15)
[2023-08-18 19:49] LABS: High Sensitivity Troponin 3 Hr 3074 pg/mL (<15)
[2023-08-18] MEDS: cefTRIAXone 1 gm/50 mL D5W 1 GM/50 ML BAG IV SCH (23:41)
[2023-08-18] MEDS: Labetalol IV 5 MG/ML 20 ml VIAL IV PUSH ONE (23:48)
[2023-08-19] MEDS: Labetalol IV 5 MG/ML 20 ml VIAL IV PUSH ONE (02:30)
[2023-08-19 06:25] LABS: Anion Gap 10 mmol/L (2-16); Blood Urea Nitrogen 24 mg/dL (6-24); CO2 Carbon Dioxide 25 mmol/L (22-32); Calcium 10.6 mg/dL (8.6-10.3); Chloride 106 mmol/L (101-111); Creatinine, Serum 1.08 mg/dL (0.51-0.95); Glucose 154 mg/dL (70-100); Sodium 141 mmol/L (135-145); eGFR CKD-EPI 49.7 (>60)
[2023-08-19 07:34] LABS: ABS Lymphocytes 3.6 10^3/uL (1.0-4.8); ABS Monocytes 0.8 10^3/uL (0.0-0.9); ABS Neutrophils 3.4 10^3/uL (1.5-7.6); ABS Nucleated RBC 0.01 10^3/ul; Eosinophil % 0.1 %; Hematocrit 28.7 % (35-45); Hemoglobin 9.7 g/dL (11.5-14.3); Lymphocyte % 46.2 %; Mean Corpuscular Hemoglobin 33.4 pg (27-33); Mean Corpuscular Hgb Conc 33.7 g/dL (31-36); Mean Corpuscular Volume 98.9 fL (80-97); Mean Platelet Volume 10.3 fL (7.5-11.2); Nucleated Red Blood Cells % 0.1 %/100WBC (0.0-0.8); Platelet Count 180 10^3/uL (150-450); Red Cell Distribution Width 14.4 % (12-17); White Blood Count 7.9 10^3/uL (3.8-11.8)
[2023-08-19] MEDS: Metoprolol Tartrate 5 mg VIAL 5 ml VIAL (1 mg/ml) IV ONE (22:28)
[2023-08-20] MEDS: Metoprolol Tartrate 5 mg VIAL 5 ml VIAL (1 mg/ml) IV PRN ×2 (01:04→22:01)
[2023-08-20 06:35] LABS: ABS Lymphocytes 2.5 10^3/uL (1.0-4.8); ABS Monocytes 0.9 10^3/uL (0.0-0.9); ABS Neutrophils 5.7 10^3/uL (1.5-7.6); ABS Nucleated RBC 0.01 10^3/ul; Eosinophil % 0.1 %; Hemoglobin 10.5 g/dL (11.5-14.3); Lymphocyte % 27.1 %; Mean Corpuscular Hemoglobin 33.5 pg (27-33); Mean Corpuscular Hgb Conc 32.9 g/dL (31-36); Mean Corpuscular Volume 101.8 fL (80-97); Mean Platelet Volume 9.7 fL (7.5-11.2); Nucleated Red Blood Cells % 0.1 %/100WBC (0.0-0.8); Platelet Count 185 10^3/uL (150-450); Red Blood Count 3.14 10^6/uL (3.63-4.92); White Blood Count 9.1 10^3/uL (3.8-11.8)
[2023-08-20] MEDS: Ondansetron 4 mg VIAL 2 MG/ML 2 ml VIAL IV ONE (06:39)
[2023-08-20 06:46] LABS: Calcium 10.7 mg/dL (8.6-10.3); Creatinine, Serum 1.05 mg/dL (0.51-0.95); Magnesium 1.7 mg/dL (1.9-2.7); Potassium 3.3 mmol/L (3.5-5.0); eGFR CKD-EPI 51.4 (>60)
[2023-08-20] MEDS: KCL 10 MEQ/50 ML IVPREMIX 10 MEQ/50 ML BAG IV SCH ×3 (09:29→21:13)
[2023-08-20] MEDS: Magnesium Sulfate 2 gm BAG 2 GM/50 ML BAG IVPB ONE (09:32)
[2023-08-20] MEDS: Potassium Chloride LIQUID 20 MEQ/15 ML LIQUID PO ONE (09:43)
[2023-08-20] MEDS: D5W 1/2 NS 1000 ml BAG 1,000 ML IV SCH (10:43)
[2023-08-20] MEDS: Potassium Chlor 20 meq TAB.ER PO ONE (16:25)
[2023-08-20] MEDS: Ondansetron 4 mg VIAL 2 MG/ML 2 ml VIAL IV PRN (20:29)
[2023-08-21] MEDS: Metoprolol Tartrate 5 mg VIAL 5 ml VIAL (1 mg/ml) IV ONE ×2 (00:09→08:45)
[2023-08-21 02:12] LABS: ABS Basophils 0.1 10^3/uL (0.0-0.1); ABS Lymphocytes 3.6 10^3/uL (1.0-4.8); ABS Monocytes 1.4 10^3/uL (0.0-0.9); ABS Neutrophils 8.6 10^3/uL (1.5-7.6); ABS Nucleated RBC 0.01 10^3/ul; Eosinophil % 0.1 %; Hematocrit 29.7 % (35-45); Hemoglobin 9.9 g/dL (11.5-14.3); Lymphocyte % 26.1 %; Mean Corpuscular Hgb Conc 33.5 g/dL (31-36); Mean Corpuscular Volume 98.5 fL (80-97); Mean Platelet Volume 9.8 fL (7.5-11.2); Nucleated Red Blood Cells % 0.1 %/100WBC (0.0-0.8); Platelet Count 227 10^3/uL (150-450); Red Blood Count 3.01 10^6/uL (3.63-4.92); Red Cell Distribution Width 14.9 % (12-17); White Blood Count 13.6 10^3/uL (3.8-11.8)
[2023-08-21 03:03] LABS: Albumin 3.5 g/dL (3.2-5.2); Albumin/Globulin Ratio 1.3 (1-3); C Reactive Protein 32.84 mg/L (<8.01); Calcium 10.6 mg/dL (8.6-10.3); Creatinine, Serum 1.09 mg/dL (0.51-0.95); Globulin 2.7 g/dL (2-4); Potassium 4.3 mmol/L (3.5-5.0); Total Bilirubin 0.7 mg/dL (0.2-1.0); Total Protein 6.2 g/dL (6.4-8.9); eGFR CKD-EPI 49.2 (>60)
[2023-08-21] MEDS: Furosemide 20 mg/2 ml IV VIAL IV SLOW PU ONE (05:52)
[2023-08-21] MEDS: Azithromycin 500 mg/250 ml NS 500 MG/250 ML BAG IVPB SCH (06:29)
[2023-08-21 06:46] LABS: ABS Lymphocytes 3.1 10^3/uL (1.0-4.8); ABS Monocytes 1.2 10^3/uL (0.0-0.9); ABS Neutrophils 8.7 10^3/uL (1.5-7.6); ABS Nucleated RBC 0.01 10^3/ul; Eosinophil % 0.1 %; Hematocrit 28.2 % (35-45); Hemoglobin 9.6 g/dL (11.5-14.3); Mean Corpuscular Hemoglobin 33.2 pg (27-33); Mean Corpuscular Volume 97.7 fL (80-97); Mean Platelet Volume 10.1 fL (7.5-11.2); Nucleated Red Blood Cells % 0.1 %/100WBC (0.0-0.8); Platelet Count 212 10^3/uL (150-450); Red Blood Count 2.89 10^6/uL (3.63-4.92); Red Cell Distribution Width 14.8 % (12-17); White Blood Count 13.1 10^3/uL (3.8-11.8)
[2023-08-21 07:03] LABS: Calcium 10.4 mg/dL (8.6-10.3); Creatinine, Serum 1.1 mg/dL (0.51-0.95); Potassium 4.3 mmol/L (3.5-5.0); eGFR CKD-EPI 48.6 (>60)
[2023-08-21 07:21] LABS: TSH Ultra Thyroid Stim Horm 4.58 mcIU/mL (0.34-5.60)
[2023-08-21] MEDS: diazePAM INJ CARPUJECT 5 MG/ML SYRINGE IV ONE ×2 (08:50→08:51)
[2023-08-21] MEDS: diazePAM INJ CARPUJECT 5 MG/ML SYRINGE ONE (08:52)
[2023-08-21] MEDS: LORazepam 2 MG/ML 1 mL Syringe IV ONE (09:25)
[2023-08-21] MEDS: levETIRAcetam 1000MG IVPREMIX 1,000 MG/100 ML BAG IVPB ONE (09:30)
[2023-08-21 09:39] LABS: Hematocrit 24.8 % (35-45); Hemoglobin 8.4 g/dL (11.5-14.3); Mean Corpuscular Hemoglobin 33.4 pg (27-33); Mean Corpuscular Hgb Conc 33.8 g/dL (31-36); Mean Corpuscular Volume 98.8 fL (80-97); Mean Platelet Volume 9.7 fL (7.5-11.2); Platelet Count 179 10^3/uL (150-450); Red Blood Count 2.51 10^6/uL (3.63-4.92); Red Cell Distribution Width 15.1 % (12-17); White Blood Count 9.8 10^3/uL (3.8-11.8)
[2023-08-21] MEDS ORDERED: Vancomycin per Pharmacy 1 EA NOTE FOLLOW UP PRN (09:41)
[2023-08-21] MEDS ORDERED: Zosyn per Pharmacy NOTE FOLLOW UP SCH (10:00)
[2023-08-21 10:10] LABS: Albumin 2.8 g/dL (3.2-5.2); Albumin/Globulin Ratio 1.3 (1-3); Calcium 9.9 mg/dL (8.6-10.3); Creatinine, Serum 1.12 mg/dL (0.51-0.95); Globulin 2.2 g/dL (2-4); Magnesium 1.8 mg/dL (1.9-2.7); Potassium 3.7 mmol/L (3.5-5.0); Total Bilirubin 0.8 mg/dL (0.2-1.0); eGFR CKD-EPI 47.6 (>60)
[2023-08-21] MEDS: Metoprolol Tartrate 5 mg VIAL 5 ml VIAL (1 mg/ml) IV SCH (10:20)
[2023-08-21] MEDS: Vancomycin 1,250 MG in NS 0.9% 250 ml 250 ML IVPB ONE (10:20)
[2023-08-21] MEDS: D5W 1/2 NS 1000 ml BAG 1,000 ML IV SCH (10:20)
[2023-08-21] MEDS: Piperacillin/Tazobac 3.375 BAG 3.375 GM/100 ML BAG IV ONE (10:20)
[2023-08-21] MEDS: Iodixanol (CONTRAST) 320 MG/ML 100 ML SDV IV ONE (10:41)
[2023-08-21 10:58] LABS: Urine Appearance Clear; Urine Bilirubin Negative (Negative); Urine Blood Trace (Negative); Urine Color Light-Yellow; Urine Glucose Negative (Negative); Urine Ketones Negative (Negative); Urine Nitrite Negative (Negative); Urine Protein Negative (Negative); Urine Specific Gravity 1.033 (1.002-1.030); Urine Urobilinogen Negative (Negative)
[2023-08-21] MEDS: Valproic Acid IV 500 MG in NS 0.9% 100 ml BAG 100 ML IVPB SCH (12:35)
[2023-08-21] MEDS: Potassium Chlor 20 meq TAB.ER PO ONE (14:36)
[2023-08-21] MEDS: Magnesium Sulfate 2 gm BAG 2 GM/50 ML BAG IVPB ONE (14:47)
[2023-08-21] MEDS: ZOSYN 3.375 GM Q8H per EXTENDED INFUSION IV SCH (14:47)
[2023-08-21] MEDS: KCL 10 MEQ/50 ML IVPREMIX 10 MEQ/50 ML BAG IV SCH (16:00)
[2023-08-22] MEDS: diazePAM INJ CARPUJECT 5 MG/ML SYRINGE IV PRN (03:04)
[2023-08-22 05:09] LABS: ABS Eosinophils 0.1 10^3/uL (0.0-0.5); ABS Lymphocytes 2.3 10^3/uL (1.0-4.8); ABS Monocytes 0.7 10^3/uL (0.0-0.9); ABS Neutrophils 5.2 10^3/uL (1.5-7.6); ABS Nucleated RBC 0.01 10^3/ul; Eosinophil % 0.8 %; Hematocrit 25.7 % (35-45); Hemoglobin 8.6 g/dL (11.5-14.3); Lymphocyte % 27.6 %; Mean Corpuscular Hemoglobin 33.5 pg (27-33); Mean Corpuscular Hgb Conc 33.3 g/dL (31-36); Mean Corpuscular Volume 100.5 fL (80-97); Mean Platelet Volume 9.8 fL (7.5-11.2); Nucleated Red Blood Cells % 0.1 %/100WBC (0.0-0.8); Platelet Count 182 10^3/uL (150-450); Red Blood Count 2.56 10^6/uL (3.63-4.92); Red Cell Distribution Width 15.1 % (12-17); White Blood Count 8.4 10^3/uL (3.8-11.8)
[2023-08-22 06:46] LABS: Potassium 4.8 mmol/L (3.5-5.0)
[2023-08-22 06:48] LABS: Calcium 9.6 mg/dL (8.6-10.3); Creatinine, Serum 1.1 mg/dL (0.51-0.95); eGFR CKD-EPI 48.6 (>60)
[2023-08-22 06:49] LABS: Albumin 2.8 g/dL (3.2-5.2); Albumin/Globulin Ratio 1.2 (1-3); Globulin 2.4 g/dL (2-4); Magnesium 2.2 mg/dL (1.9-2.7); Total Bilirubin 0.9 mg/dL (0.2-1.0); Total Protein 5.2 g/dL (6.4-8.9)
[2023-08-22] MEDS ORDERED: levETIRAcetam IV 750 MG in NS 0.9% 100 ml BAG 100 ML IVPB SCH (09:00)
[2023-08-22] MEDS: Levothyroxine 100 MCG/5 ML VIAL IV SCH (10:09)
[2023-08-22] MEDS: D5W 1/2 NS 1000 ml BAG 1,000 ML IV SCH (10:15)
[2023-08-22] MEDS: Vancomycin 500 MG in NS 0.9% 250 ML IVPB SCH (12:31)
[2023-08-23 06:05] LABS: Hematocrit 23.6 % (35-45); Mean Corpuscular Hemoglobin 33.8 pg (27-33); Mean Corpuscular Hgb Conc 33.9 g/dL (31-36); Mean Corpuscular Volume 99.7 fL (80-97); Mean Platelet Volume 9.8 fL (7.5-11.2); Platelet Count 195 10^3/uL (150-450); Red Blood Count 2.37 10^6/uL (3.63-4.92); Red Cell Distribution Width 15.1 % (12-17); White Blood Count 6.4 10^3/uL (3.8-11.8)
[2023-08-23 06:21] LABS: Calcium 9.5 mg/dL (8.6-10.3); Creatinine, Serum 1.08 mg/dL (0.51-0.95); Potassium 3.8 mmol/L (3.5-5.0); eGFR CKD-EPI 49.7 (>60)
[2023-08-23] MEDS: Potassium Chlor 20 meq TAB.ER PO ONE (10:13)
[2023-08-23] MEDS: Levothyroxine 100 MCG/5 ML VIAL IV SCH (10:13)
[2023-08-23] MEDS: D5W 1000 ml BAG 1,000 ML IV SCH (10:27)
[2023-08-23] MEDS: Metoprolol Tartrate 5 mg VIAL 5 ml VIAL (1 mg/ml) IV PRN (16:21)
[2023-08-23] MEDS ORDERED: Valproic Acid IV 500 MG in NS 0.9% 100 ml BAG 100 ML IVPB ONE (22:25)
[2023-08-23] MEDS: Valproic Acid LIQ 250 MG/5 ML UDC PO SCH (22:58)
[2023-08-24] MEDS: Labetalol IV 5 MG/ML 20 ml VIAL IV PUSH ONE ×3 (02:28→06:10)
[2023-08-24 07:08] LABS: ABS Eosinophils 0.1 10^3/uL (0.0-0.5); ABS Lymphocytes 2.6 10^3/uL (1.0-4.8); ABS Monocytes 0.9 10^3/uL (0.0-0.9); ABS Neutrophils 3.8 10^3/uL (1.5-7.6); ABS Nucleated RBC 0.01 10^3/ul; Eosinophil % 1.7 %; Hematocrit 26.2 % (35-45); Hemoglobin 8.6 g/dL (11.5-14.3); Lymphocyte % 34.7 %; Mean Corpuscular Hemoglobin 33.3 pg (27-33); Mean Corpuscular Hgb Conc 32.8 g/dL (31-36); Mean Corpuscular Volume 101.7 fL (80-97); Mean Platelet Volume 9.4 fL (7.5-11.2); Nucleated Red Blood Cells % 0.1 %/100WBC (0.0-0.8); Platelet Count 213 10^3/uL (150-450); Red Blood Count 2.57 10^6/uL (3.63-4.92); Red Cell Distribution Width 15.8 % (12-17); White Blood Count 7.4 10^3/uL (3.8-11.8)
[2023-08-24 07:22] LABS: Calcium 9.7 mg/dL (8.6-10.3); Creatinine, Serum 0.99 mg/dL (0.51-0.95); Phosphorus 2.1 mg/dL (2.5-5.0); Potassium 3.8 mmol/L (3.5-5.0); eGFR CKD-EPI 55.2 (>60)
[2023-08-24] MEDS: KCL 10 MEQ/50 ML IVPREMIX 10 MEQ/50 ML BAG IV SCH (09:12)
[2023-08-24] MEDS ORDERED: Valproic Acid IV 100 MG/ML 5 ML VIAL (500 MG) IVPB SCH (10:00)
[2023-08-24] MEDS ORDERED: Vancomycin Trough Check NOTE FOLLOW UP ONE (11:30)
[2023-08-24] MEDS: Valproic Acid IV 500 MG in NS 0.9% 100 ML IVPB SCH (11:55)
[2023-08-24] MEDS: D5W IV SCH (13:11)
[2023-08-24] MEDS: POTASSIUM CHLORIDE IV SCH (13:11)
[2023-08-24 13:26] VITALS: BP 138/95
[2023-08-24] MEDS: NS 0.9% IVPB ONE (14:15)
[2023-08-24] MEDS: POTASSIUM PHOSPHATE IVPB ONE (14:15)
[2023-08-24] MEDS ORDERED: Senna TAB 8.6 mg TAB PO PRN (14:59)
[2023-08-24] MEDS ORDERED: Ondansetron ODT 4 mg TAB 4 MG TAB SL PRN (14:59)
[2023-08-24] MEDS ORDERED: Atropine 1% (ORAL/SL) 15 ML BTL SL PRN (14:59)
[2023-08-25] MEDS: Morphine ORAL CONCENTRATE 5 MG/0.25 ML ORAL.SYRIN SL PRN (09:42)
== END 2023-08-26 10:01 | disposition home or self-care (01) | DRG 871 ==
LOC: ED 18:05 → EDHOLD 20:06 → SUATTDRO 20:06 → MEDTELE 22:53
PROVIDERS: ADMIT Internal Medicine; ATTEND Hospitalist